=== PATIENT | male | born 1995 | race Caucasian/White ===

== ENCOUNTER 2017-07-29 16:13 | Emergency (ER) | payer BC ==
[2017-07-29 17:04] VITALS: BP 114/57
== END 2017-07-29 18:51 | disposition left against medical advice (07) ==
LOC: UCCORT 16:13
DX: J34.89 Other specified disorders of nose and nasal sinuses (principal); Z53.21 Procedure and treatment not carried out due to patient leaving prior to being seen by health care provider

== ENCOUNTER 2017-07-30 08:48 | Emergency (ER) | payer BC ==
[2017-07-30 09:22] VITALS: BP 133/62
[2017-07-30] MEDS ORDERED: Ondansetron ODT TAB* 4 MG PO ONE (09:47)
[2017-07-30] MEDS ORDERED: Ibuprofen TAB* 400 MG PO ONE (09:48)
[2017-07-30] MEDS ORDERED: Acetaminophen TAB* 325 MG PO ONE (09:48)
--- NOTE | 2017-07-30 10:08 | ED ---
Headache - HPI Summary HPI Summary: 22 yr old with four days of headache, location right frontal over eyebrow area, achey, associated with nausea and some vomiting. Denies light sensitivity. Denies neck stiffness. He has had headaches in same location at earlier ages, and diagnosed with migraines by his PMD, but he has not had headache last 4 days before. He has had mild nasal congestion. Denies change in vision, speech , hearing, swallowing, focal weakness, numbness. - History Of Current Complaint Chief Complaint: UCHeadache Stated Complaint: SINUS,HEADACHE Time Seen by Provider: 07/30/17 09:37 - Allergies/Home Medications Allergies/Adverse Reactions: Allergies Allergy/AdvReac Type Severity Reaction Status Date / Time No Known Allergies Allergy Verified 07/30/17 09:23 PMH/Surg Hx/FS Hx/Imm Hx Endocrine/Hematology History: Denies: Hx Diabetes Cardiovascular History: Denies: Hx Hypertension, Hx Pacemaker/ICD History: Denies: Hx Renal Disease Musculoskeletal History: Denies: Hx Rheumatoid Arthritis, Hx Osteoporosis Sensory History: Denies: Hx Hearing Aid Psychiatric History: Denies: Hx Panic Disorder - Surgical History Surgery Procedure, Year, and Place: Appendectomy, 2009, [facility]. BROKEN NOSE REPAIRED. right knee surgery Infectious Disease History: No Infectious Disease History: Denies: Traveled Outside the [place] in Last 30 Days - Social History Alcohol Use: Rare Substance Use Type: Reports: None Smoking Status (MU): Never Smoked Tobacco Review of Systems Constitutional: Negative Negative: Photophobia, Blurred Vision, Diplopia Positive: Headache. Negative: Weakness, Paresthesia, Numbness, Syncope, Slurred Speech All Other Systems Reviewed And Are Negative: Yes Physical Exam Triage Information Reviewed: Yes Vital Signs On Initial Exam: Initial Vitals Temp Pulse Resp BP Pulse Ox 98.5 F 76 18 133/62 100 07/30/17 09:13 07/30/17 09:13 07/30/17 09:13 07/30/17 09:13 07/30/17 09:13 Vital Signs Reviewed: Yes Appearance: Positive: Well-Appearing, No Pain Distress Skin: Positive: Warm, Skin Color Reflects Adequate Perfusion Head/Face: Positive: Normal Head/Face Inspection, Other - no rash forhead or eyelid. Negative: Temporal Artery Tenderness, TMJ Tenderness Eyes: Positive: EOMI - minor strabismus which he states is chronic. No pain on ROM of eyes., TONJA, Conjunctiva Clear, Other: - eyelids WNL. ENT: Positive: Normal ENT inspection, TMs normal. Negative: Muffled voice, Hoarse voice Neck: Positive: Nontender. Negative: Nuchal Rigidity Respiratory/Lung Sounds: Positive: Clear to Auscultation, Breath Sounds Present Cardiovascular: Positive: RRR. Negative: Murmur Abdomen Description: Negative: Distended Musculoskeletal: Positive: Strength/ROM Intact Neurological: Positive: Sensory/Motor Intact, Alert, Oriented to Person Place, Time, CN Intact II-III, Normal Gait, Finger to Nose - smooth, Speech Normal Psychiatric: Positive: Normal - Opheim Coma Scale Best Eye Response: 4 - Spontaneous Best Motor Response: 6 - Obeys Commands Best Verbal Response: 5 - Oriented Coma Scale Total: 15 Diagnostics - Vital Signs Vital Signs Temp Pulse Resp BP Pulse Ox 07/30/17 09:13 98.5 F 76 18 133/62 100 - Laboratory Lab Statement: Any lab studies that have been ordered have been reviewed, and results considered in the medical decision making process. - CT head CT Interpretation: No Acute Changes CT Interpretation Completed By: Radiologist Headache Course/Dx - Course Course Of Treatment: 22 yr old with 3/10 right frontal headache four days. Given motrin, tylenol and zofran here with no change after an hour. He is driving. Neuro exam normal. recommend go to the ER for further treatment. - Diagnoses Provider Diagnoses: Headache Discharge - Sign-Out/Discharge Documenting (check all that apply): Discharge/Admit/Transfer - Discharge Plan Condition: Good Disposition: HOME Patient Education Materials: Acute Headache (ED) Referrals: No Primary Care Phys,NOPCP [Primary Care Provider] - [facility] [Outside] Additional Instructions: You should go to the ER for further work up and treatment of your headache symptoms. - Billing Disposition and Condition Condition: GOOD Disposition: Home
--- NOTE | 2017-07-30 10:33 | RAD ---
HISTORY: frontal right side headache COMPARISONS: None TECHNIQUE: Multiple contiguous axial CT scans were obtained of the head without intravenous contrast. FINDINGS: HEMORRHAGE/INFARCT: There is no hemorrhage or acute infarct. MASSES/SHIFT: There is no mass or shift. EXTRA-AXIAL SPACES: There are no extra-axial fluid collections. SULCI AND VENTRICLES: The sulci and ventricles are normal in size and position for the patient's stated age. CEREBRUM: There are no focal parenchymal abnormalities. BRAINSTEM: There are no focal parenchymal abnormalities. CEREBELLUM: There are no focal parenchymal abnormalities. VESSELS: The vessels are grossly normal. PARANASAL SINUSES: The paranasal sinuses are clear. ORBITS: The orbits are unremarkable. BONES AND SOFT TISSUE: No bone or soft tissue abnormalities are noted. OTHER: None IMPRESSION: NO ACUTE INTRACRANIAL PATHOLOGY.
== END 2017-07-30 11:02 | disposition home or self-care (01) ==
LOC: UCCORT 08:48
DX: R51 Headache (principal); R11.2 Nausea with vomiting, unspecified; R09.81 Nasal congestion
CPT/HCPCS: 70450; 99212; A9270-GY; G0463

== ENCOUNTER 2017-08-22 17:48 | Emergency (ER) | payer BC ==
[2017-08-22 18:27] VITALS: BP 105/66
--- NOTE | 2017-08-22 19:21 | UC ---
Dental HPI - HPI Summary HPI Summary: Patient presents complaining of pain to a bad tooth. He states the pain began about a week ago but has gotten quite severe over past 3 days he has followed up with his dentist-[facility] daily dental. The dentist's treating him with an antibiotic and advised that that would take care of this pain. The plan is to pull the tooth however the pain has gotten worse. He denies any associated swelling. His dentist is currently on vacation. He's been self treating with [id number] Tylenol and Motrin without relief. - History of Current Complaint Chief Complaint: UCDentalProblem Stated Complaint: DENTAL Time Seen by Provider: 08/22/17 19:14 Hx Obtained From: Patient Onset/Duration: Gradual Onset Pain Intensity: 8 Aggravating Factor(s): Chewing - Allergies/Home Medications Allergies/Adverse Reactions: Allergies Allergy/AdvReac Type Severity Reaction Status Date / Time No Known Allergies Allergy Verified 08/22/17 18:27 Home Medications: Home Medications Acetaminophen [Tylenol Extra Strength] 100 mg PO DAILY 08/22/17 [History Confirmed 08/22/17] Antibioitic For Dental BID 08/22/17 [History] PMH/Surg Hx/FS Hx/Imm Hx Previously Healthy: Yes - Surgical History Surgical History: Yes Surgery Procedure, Year, and Place: Appendectomy, 2008, [facility]. BROKEN NOSE REPAIRED. right knee surgery - Family History Known Family History: Positive: None - Social History Occupation: Employed Part-time Lives: With Family Alcohol Use: Rare Substance Use Type: None Smoking Status (MU): Never Smoked Tobacco - Immunization History Most Recent Influenza Vaccination: November 2012 Vaccination Up to Date: Yes Review of Systems Constitutional: Negative Skin: Negative Eyes: Negative ENT: Dental Pain Respiratory: Negative Cardiovascular: Negative Gastrointestinal: Negative Genitourinary: Negative Motor: Negative Neurovascular: Negative Musculoskeletal: Negative Neurological: Negative Psychological: Negative Is Patient Immunocompromised?: No All Other Systems Reviewed And Are Negative: Yes Physical Exam Triage Information Reviewed: Yes Appearance: Well-Appearing Vital Signs: Initial Vital Signs Temp 98.7 F 08/22/17 18:23 Pulse 60 08/22/17 18:23 Resp 16 08/22/17 18:23 BP 105/66 08/22/17 18:23 Pulse Ox 100 08/22/17 18:23 Eyes: Positive: Conjunctiva Clear ENT: Positive: Pharynx normal, TMs normal. Negative: Nasal congestion, Nasal drainage Dental: Positive: Other: - Right upper a anterior molar is fractured on the lingual side. The tooth is tender. The gum is not swollen and there is no fluctuance. Neck: Positive: Supple, Nontender, No Lymphadenopathy Respiratory: Positive: Lungs clear, Normal breath sounds Cardiovascular: Positive: RRR, No Murmur Abdomen Description: Positive: Nontender, No Organomegaly, Soft Bowel Sounds: Positive: Present Musculoskeletal: Positive: ROM Intact Neurological: Positive: Alert Psychological: Positive: Age Appropriate Behavior Skin Exam: Normal Dental Complaint Course/Dx - Course Course Of Treatment: Patient will continue the antibiotic from the dentist. Since [id number] Tylenol Motrin or failing L have him discontinue use. I' m going to start him on naproxen 500 mg twice daily and add [place] as needed for pain control total number of 10 written. He's been advised to follow-up with his dentist as soon as possible. No concern for abscess. I stop searched done and no concerns. - Differential Dx/Diagnosis Provider Diagnoses: Fracture right upper anterior molar with pain Discharge - Sign-Out/Discharge Documenting (check all that apply): Discharge/Admit/Transfer - Discharge Plan Condition: Stable Disposition: HOME Prescriptions: HYDROcodone/ACETAMIN 5-325 MG* [[place] 5-325 TAB*] 1 tab PO Q6H PRN 3 Days #10 tab MDD 4 PRN Reason: Pain (Dental) Naproxen [Naprosyn 500 mg tab] 500 mg PO BID #10 tablet Patient Education Materials: Toothache (ED) Referrals: No Primary Care Phys,NOPCP [Primary Care Provider] - Additional Instructions: FOLLOW UP [facility], NEXT AVAILABLE APPOINTMENT CONTINUE THE ANTIBIOTIC DIRECTED. STOP ALL PRIOR PAIN MEDICATIONS. - Billing Disposition and Condition Condition: STABLE Disposition: Home
[2017-08-22] MEDS ORDERED: HYDROcodone/ACETAMIN 5-325 MG* 1 TAB PO ONE (19:43)
== END 2017-08-22 20:05 | disposition home or self-care (01) ==
LOC: UCCORT 17:48
DX: S02.5XXA Fracture of tooth (traumatic), initial encounter for closed fracture (principal); X58.XXXA Exposure to other specified factors, initial encounter; Y93.9 Activity, unspecified; Y92.9 Unspecified place or not applicable
CPT/HCPCS: 99212; G0463

== ENCOUNTER 2019-04-15 20:59 | Emergency (ER) | payer BC ==
[2019-04-15 21:16] VITALS: BP 121/85
--- NOTE | 2019-04-15 21:19 | UC ---
Throat Pain/Nasal Vince HPI - HPI Summary HPI Summary: per math and science instructor: "Sore throat that causes pain with swollowing and talking and symptoms started yesterday." -pain is severe at 7/10. never had strep. no fever. did not take nsaids or apap. no rash. no otalgia, mild cough and mild congestion -no w/r/r -no n/v/d. - History of Current Complaint Chief Complaint: UCGeneralIllness Stated Complaint: SORE THROAT Time Seen by Provider: 04/15/19 21:17 Pain Intensity: 7 - Allergies/Home Medications Allergies/Adverse Reactions: Allergies Allergy/AdvReac Type Severity Reaction Status Date / Time No Known Allergies Allergy Verified 04/15/19 21:12 Home Medications: Home Medications Ibuprofen TAB* [Advil TAB*] 600 mg PO Q6H PRN 07/29/17 [History Confirmed ] Acetaminophen [Tylenol Extra Strength] 100 mg PO DAILY 08/22/17 [History Confirmed 04/15/19] PMH/Surg Hx/FS Hx/Imm Hx Previously Healthy: Yes - Surgical History Surgical History: Yes Surgery Procedure, Year, and Place: Appendectomy, 2008, [facility]. BROKEN NOSE REPAIRED. right knee surgery. Left hip surgery-2019 - Family History Known Family History: Positive: None, Non-Contributory - Social History Alcohol Use: Rare Substance Use Type: None Smoking Status (MU): Never Smoked Tobacco - Immunization History Most Recent Influenza Vaccination: November 2012 Vaccination Up to Date: Yes Review of Systems All Other Systems Reviewed And Are Negative: Yes Constitutional: Positive: Negative. Negative: Fever, Chills, Fatigue Skin: Positive: Negative. Negative: Rash Eyes: Positive: Negative ENT: Positive: Sore Throat, Nasal Discharge. Negative: Ear Ache, Sinus Pain/ Tenderness Respiratory: Positive: Negative, Cough - mild. Negative: Shortness Of Breath Cardiovascular: Positive: Negative. Negative: Palpitations, Chest Pain Gastrointestinal: Positive: Negative. Negative: Abdominal Pain, Vomiting, Diarrhea, Nausea Genitourinary: Positive: Negative. Negative: Dysuria Motor: Positive: Negative Neurovascular: Positive: Negative Musculoskeletal: Positive: Negative Neurological/Mental Status: Positive: Negative Psychological: Positive: Negative Is Patient Immunocompromised?: No Physical Exam Triage Information Reviewed: Yes Appearance: Well-Appearing, No Pain Distress, Well-Nourished - very pleasant Vital Signs: Initial Vital Signs Temp 99.5 F 04/15/19 21:12 Pulse 91 04/15/19 21:12 Resp 16 04/15/19 21:12 BP 121/85 04/15/19 21:12 Pulse Ox 99 04/15/19 21:12 Eye Exam: Normal ENT: Positive: Pharyngeal erythema - no abscess, TMs normal, Uvula midline. Negative: Nasal congestion, Nasal drainage, TM bulging, TM dull, TM red, Tonsillar swelling, Tonsillar exudate, Sinus tenderness Dental Exam: Normal Neck exam: Normal Neck: Positive: Supple, Nontender, No Lymphadenopathy - anterior or posterior Respiratory Exam: Normal Respiratory: Positive: Chest non-tender, Lungs clear, Normal breath sounds, No respiratory distress, No accessory muscle use. Negative: Crackles, Rhonchi, Stridor, Wheezing Cardiovascular Exam: Normal Cardiovascular: Positive: RRR Abdominal Exam: Normal Musculoskeletal Exam: Normal Neurological Exam: Normal Psychological Exam: Normal Skin Exam: Normal Throat Pain/Nasal Course/Dx - Course Course Of Treatment: rapid streo is neg -send TC bc severity of pain, however - no fever, no LAD, no exudate. mild cough. -pt v/u and agrees w/ plan. - Differential Dx/Diagnosis Differential Diagnosis/HQI/PQRI: Pharyngitis, Tonsillitis, URI Provider Diagnosis: Pharyngitis Discharge ED - Sign-Out/Discharge Documenting (check all that apply): Patient Departure All imaging exams completed and their final reports reviewed: No Studies - Discharge Plan Condition: Stable Disposition: HOME Patient Education Materials: Pharyngitis (ED) Referrals: No Primary Care Phys,NOPCP [Primary Care Provider] - Additional Instructions: The rapid strep test is negative. We are ordering a more accurate test called a throat culture. If that result comes back positive in the next couple of days. you should get a call from us with an antibiotic. You should follow up with Dr Mayers's office in 4-5 days, sooner if symptoms worsen. Consideration for mono testing can be given if your symptoms persist. -Fluids, rest and ibuprofen/tylenol can be helpful. - Billing Disposition and Condition Condition: STABLE Disposition: Home
== END 2019-04-15 21:37 | disposition home or self-care (01) ==
LOC: UCCORT 20:59
DX: J02.9 Acute pharyngitis, unspecified (principal); R09.89 Other specified symptoms and signs involving the circulatory and respiratory systems
CPT/HCPCS: 87070; 87651; 99211; G0463